=== PATIENT | female | born 1975 | race American Indian/Alaskan Native ===

== ENCOUNTER 2018-05-23 00:38 | Emergency (ER) | payer SELFPAY ==
[2018-05-23 00:44] VITALS: BP 237/144
== END 2018-05-23 01:40 | disposition left against medical advice (07) ==
LOC: ED 00:38
DX: I10 Essential (primary) hypertension (principal); Z53.21 Procedure and treatment not carried out due to patient leaving prior to being seen by health care provider
CPT/HCPCS: 93005; 93010